=== PATIENT | male | born 2000 | race Native Hawaiian/Other Pacific Islander ===

== ENCOUNTER 2022-11-20 11:25 | Emergency (ER) | payer OTHER ==
[~2022-11-20] VITALS: Ht 172.7 cm; Wt 59.0 kg
[2022-11-20 11:27] VITALS: BP 116/53; TEMP 99.5
== END 2022-11-20 13:45 | disposition home or self-care (01) ==
LOC: ED 11:25
DX: J11.1 Influenza due to unidentified influenza virus with other respiratory manifestations (principal); Z20.822 Contact with and (suspected) exposure to COVID-19
CPT/HCPCS: 87502; 87635; 99283; U0003

== ENCOUNTER 2022-11-22 00:39 | Observation (INO) | payer OTHER ==
[~2022-11-22] VITALS: Ht 172.7 cm; Wt 55.3 kg
[2022-11-22 00:45] VITALS: BP 120/66; TEMP 101.7
[2022-11-22 02:00] VITALS: TEMP 98.2
[2022-11-22 02:28] LABS: PLATELET COUNT 151 K/uL (142-355)
[2022-11-22 02:41] LABS: POTASSIUM 3.8 mmol/L (3.6-5.2)
[2022-11-22 04:00] VITALS: BP 105/54; TEMP 98.2
[2022-11-22 04:46] VITALS: BP 105/54; TEMP 98.2; Ht 172.7 cm; Wt 55.3 kg
[2022-11-22 08:00] VITALS: BP 109/52; TEMP 97.5
[2022-11-22] MEDS ORDERED: LEVOFLOXACIN750 MG PO (08:33)
[2022-11-22] MEDS ORDERED: OSEL75CA PO (08:33)
[2022-11-22] MEDS ORDERED: ALBU90AE13 INH (08:34)
== END 2022-11-22 11:35 | disposition home or self-care (01) ==
LOC: ED 00:39 → MED/SURG 02:14
PROVIDERS: ADMIT Emergency Medicine; ATTEND Internal Medicine
DX: J10.08 Influenza due to other identified influenza virus with other specified pneumonia (principal)
CPT/HCPCS: 36415; 80053; 85027; 87040; 99220; 99283; G0378